=== PATIENT | male | born 1965 | race Caucasian/White ===

== ENCOUNTER → 2017-11-10 | Outpatient (CLI) | payer BC ==
--- NOTE | 2017-11-10 13:25 | XR ---
EXAMINATION TYPE: XR sinus DATE OF EXAM: 11/10/2017 CLINICAL HISTORY: Facial pain , headache. TECHNIQUE: Hutchison, Bone, and lateral image of the skull are obtained. COMPARISON: None. FINDINGS: Mild mucosal thickening is seen of the right maxillary sinuses. The remaining paranasal sin uses including the frontal and left maxillary sinuses appear well aerated without distinct abnormal o pacification. Orbital floors and william are intact. Facial bones appear intact. IMPRESSION: Mild right maxillary sinusitis.
--- NOTE | 2017-11-10 13:26 | XR ---
EXAMINATION TYPE: XR chest 2V DATE OF EXAM: 11/10/2017 COMPARISON: NONE HISTORY: Shortness of breath. Acute upper respiratory infection. TECHNIQUE: Frontal and lateral views of the chest are obtained. FINDINGS: There is no focal air space opacity, pleural effusion, or pneumothorax seen. The cardiac silhouette size is within normal limits. The osseous structures are intact. No peribronchial cuffin g as radiographic sequela bronchitis. IMPRESSION: No acute cardiopulmonary process.
== END | disposition home or self-care (01) ==
LOC: RADXRMAIN 12:33
PROVIDERS: ATTEND Internal Medicine
DX: J32.0 Chronic maxillary sinusitis (principal)
CPT/HCPCS: 70220; 71046

== ENCOUNTER → 2018-06-17 | Outpatient (CLI) | payer BC ==
--- NOTE | 2018-06-17 13:57 | EST ---
EXERCISE STRESS AGE: 52 SEX: M HT: 73" WT: 218 PROTOCOL: Shahriar Stress Test STAGE: 4 DURATION OF EXERCISE: 11:20 HEART RATE REST: 77 BLOOD PRESSURE REST: 139/84 MAXIMUM HEART RATE ACHIEVED: 143 MAXIMUM BLOOD PRESSURE: 213/79 85% MPHR: 142 METS: 12.1 INDICATIONS: Hypertension/dyspnea. CLINICAL INFORMATION: Patient was exercised for a total period of 11 minutes. A peak heart rate of 140, was achieved. Maximum blood pressure of 213/79 mmHg was noted. Patient did not complain of any chest pain during the test. The resting EKG shows normal sinus rhythm with normal KS interval and QRS duration and normal ST-T waves. No ST-segment depression suggestive of ischemia was noted. Test was terminated because patient got short of breath. FINAL IMPRESSION: This exercise test is not suggestive of ischemia. Patient's exercise tolerance is average. Patient did not complain of any chest pain during the test. MMODL / IJN: [id number] /
== END | disposition home or self-care (01) ==
LOC: RADNMMAIN 10:31
PROVIDERS: ATTEND Internal Medicine
DX: R06.00 Dyspnea, unspecified (principal); I10 Essential (primary) hypertension
CPT/HCPCS: 93017

== ENCOUNTER → 2019-06-23 | Outpatient (CLI) | payer BC ==
--- NOTE | 2019-06-23 09:08 | FL ---
EXAMINATION TYPE: FL barium swallow DATE OF EXAM: 06/23/2019 CLINICAL HISTORY: Dysphasia, food getting stuck mid sternum radiating to back single episode which cl eared after drinking water TECHNIQUE: A double contrast esophagram is performed utilizing air and barium. A total of 31 second s of fluoroscopic time was utilized during procedure. 41 spot images are saved to PACS. COMPARISON: None FINDINGS: The esophagus shows satisfactory motility and emptying into the stomach. Small sliding-type hiatal hernia seen towards the end of study. No stricture or intraluminal mass. Transient penetratio n without aspiration is present. No diverticulum. No significant gastroesophageal reflux was seen dur ing real time performance of this study. IMPRESSION: No suspicious intraluminal mass or stricture.
== END | disposition home or self-care (01) ==
LOC: RADUSWWP 07:42
PROVIDERS: ATTEND Internal Medicine
DX: R13.10 Dysphagia, unspecified (principal)
CPT/HCPCS: 74220

== ENCOUNTER → 2021-11-08 | Outpatient (CLI) | payer OTHER ==
--- NOTE | 2021-11-08 12:36 | XR ---
EXAMINATION TYPE: XR chest 2V DATE OF EXAM: 11/08/2021 COMPARISON: 11/10/2017 HISTORY: 56-year-old male J45.909 TECHNIQUE: Frontal and lateral views FINDINGS: The cardiomediastinal silhouette, aorta, and pulmonary vasculature are within normal limits. Mild int erstitial prominence. Otherwise, lungs and pleural spaces are clear. IMPRESSION: Mild interstitial prominence could reflect bronchitis or chronic asthma. No focal infiltrate seen.
== END | disposition home or self-care (01) ==
LOC: RADXRMAIN 10:55
PROVIDERS: ATTEND Internal Medicine
DX: J45.909 Unspecified asthma, uncomplicated (principal)
CPT/HCPCS: 71046

== ENCOUNTER → 2021-11-14 | Outpatient (CLI) | payer OTHER | LOC: LABWHC1 11:11 | PROVIDERS: ATTEND Internal Medicine | DX: Z20.822 Contact with and (suspected) exposure to COVID-19 (principal); J45.909 Unspecified asthma, uncomplicated | CPT/HCPCS: 87636 ==

== ENCOUNTER → 2022-02-22 | Outpatient (CLI) | payer OTHER | END | disposition home or self-care (01) | LOC: LABWHC1 08:13 | PROVIDERS: ATTEND Internal Medicine | DX: R73.9 Hyperglycemia, unspecified (principal) | CPT/HCPCS: 36415; 83036; 84439; 84443 ==

== ENCOUNTER 2022-04-28 18:45 | Emergency (ER) | payer OTHER ==
[2022-04-28 19:40] VITALS: BP 153/89; PULSE 61; RESP 22; TEMP 98.1
[2022-04-28] MEDS ORDERED: CEPHALEXIN 500 MG CAP PO STA (20:03)
[2022-04-28] MEDS ORDERED: DIPH,PERTUS(ACELL)TETVAC-LF 0.5 ML VIAL IM ONE (20:05)
--- NOTE | 2022-04-28 20:08 | ED ---
General Adult HPI - General Chief complaint: Wound/Laceration Stated complaint: right index finger injury Time Seen by Provider: 04/28/22 19:57 Source: patient, RN notes reviewed, old records reviewed Mode of arrival: ambulatory Limitations: no limitations - History of Present Illness Initial comments: 56-year-old male presents with laceration to the right index finger. This occurred on Thursday which was 2 days prior. He's had increased warmth and erythema to the index finger. No other injury. He is uncertain of his tetanus status. No fever. He is a nondiabetic. - Related Data Home Medications Medication Instructions Recorded Confirmed Ibuprofen [Motrin] 600 mg PO Q8HR PRN 08/04/14 08/04/14 Levothyroxine Sodium [Synthroid] 50 mcg PO DAILY 08/04/14 08/04/14 diphenhydrAMINE [Benadryl] 50 mg PO DAILY PRN 08/04/14 08/04/14 Previous Rx's Medication Instructions Recorded Ibuprofen [Motrin] 800 mg PO Q6HR PRN #20 tab 08/04/14 Cephalexin [Keflex] 500 mg PO QID 10 Days #40 cap 04/28/22 Allergies Allergy/AdvReac Type Severity Reaction Status Date / Time No Known Allergies Allergy Verified 04/28/22 19:40 Review of Systems ROS Statement: Those systems with pertinent positive or pertinent negative responses have been documented in the HPI. ROS Other: All systems not noted in ROS Statement are negative. Past Medical History Past Medical History: Hypertension History of Any Multi-Drug Resistant Organisms: None Reported Past Surgical History: Breast Surgery, Ear Surgery Additional Past Surgical History / Comment(s): sinus surgery Past Psychological History: No Psychological Hx Reported Smoking Status: Never smoker Past Alcohol Use History: None Reported Past Drug Use History: None Reported General Exam Limitations: no limitations General appearance: alert, in no apparent distress Head exam: Present: atraumatic, normocephalic Eye exam: Present: normal appearance, PERRL ENT exam: Present: normal exam Neck exam: Present: normal inspection Respiratory exam: Present: normal lung sounds bilaterally. Absent: respiratory distress, wheezes Cardiovascular Exam: Present: regular rate, normal rhythm GI/Abdominal exam: Present: soft. Absent: distended, tenderness Extremities exam: Present: other (V-shaped laceration less than a centimeter to the palmar surface distal phalanx right hand second digit. There is some soft tissue swelling and erythema predominantly over the distal phalanx.) Course Vital Signs 04/28/22 19:36 Temperature 98.1 F Pulse Rate 61 Respiratory 22 Rate Blood Pressure 153/89 O2 Sat by Pulse 98 Oximetry Medical Decision Making - Medical Decision Making 56-year-old male with small superficial laceration to the palmar surface distal phalanx right hand second digit. There is some mild associated cellulitis and decreased range of motion at that joint. His tetanus is updated in the emergency department. He started on Keflex. His laceration is too old to repair and is quite minimal. He should follow with his primary care physician to ensure that the soft tissue infection resolves. Disposition Clinical Impression: Laceration, Cellulitis Disposition: HOME SELF-CARE Condition: Fair Instructions (If sedation given, give patient instructions): Cellulitis (ED), Laceration (DC) Prescriptions: Cephalexin [Keflex] 500 mg PO QID 10 Days #40 cap Is patient prescribed a controlled substance at d/c from ED?: No Referrals: Brian Mcwilliams MD [Primary Care Provider] - 1-2 days Time of Disposition: 20:07
== END 2022-04-28 20:35 | disposition home or self-care (01) ==
LOC: EC 18:45
DX: S61.210A Laceration without foreign body of right index finger without damage to nail, initial encounter (principal); L03.011 Cellulitis of right finger; Z23 Encounter for immunization; I10 Essential (primary) hypertension
CPT/HCPCS: 90471; 90715; 99282

== ENCOUNTER 2022-07-26 14:18 | Emergency (ER) | payer OTHER ==
[2022-07-26 14:30] VITALS: BP 160/99; PULSE 85; RESP 16; TEMP 98.1
--- NOTE | 2022-07-26 15:12 | XR ---
EXAMINATION TYPE: XR chest 2V DATE OF EXAM: 07/26/2022 2:53 PM COMPARISON: Chest x-ray 11/08/2021, chest x-ray 11/10/2017 TECHNIQUE: XR chest 2V . CLINICAL INDICATION:Male, 56 years old with history of cough; FINDINGS: Lungs/Pleura: There is no evidence of pleural effusion, focal consolidation, or pneumothorax. Pulmonary vascularity: Unremarkable. Heart/mediastinum: Cardiomediastinal silhouette is unremarkable. Musculoskeletal: No acute osseous pathology. IMPRESSION: No acute cardiopulmonary disease/process.
[2022-07-26] MEDS ORDERED: predniSONE 50 MG TAB PO STA (16:21)
--- NOTE | 2022-07-26 16:23 | ED ---
General Adult HPI - General Chief complaint: Shortness of Breath Stated complaint: poss bronchitis Time Seen by Provider: 07/26/22 16:12 Source: patient, RN notes reviewed Mode of arrival: ambulatory Limitations: no limitations - History of Present Illness Initial comments: This is a pleasant 56-year-old male who presents back complaining of a dry cough which has been worsening over the past 7 days. Patient states she started getting sick last Thursday and took a COVID-19 test. Patient was positive. He realized he had been exposed to somebody with COVID-19. Patient states cough seemed to get worse. He called his doctor on Thursday was put on the antiviral medication for COVID-19. Patient is a nonsmoker. Denies any chest pain. Cough is nonproductive. Patient again tested himself last night and tested negative for COVID-19. However he is only 7 a days into the illness. No leg swelling. No hemoptysis. Other than the cough, no definitive shortness of breath. Patient has no immunosuppression. Not diabetic. No headache, no fever or chills, no changes in vision or hearing, no sore throat or difficulty with speech, no neck pain, no chest pain or shortness of breath, no abdominal pain, no nausea or vomiting, no changes in urination or bowel movements, no numbness or tingling, no extremity pain, no skin rashes or lesions. Past medical, surgical, social, and family history reviewed. - Related Data Home Medications Medication Instructions Recorded Confirmed Ibuprofen [Motrin] 600 mg PO Q8HR PRN 08/04/14 08/04/14 Levothyroxine Sodium [Synthroid] 50 mcg PO DAILY 08/04/14 08/04/14 diphenhydrAMINE [Benadryl] 50 mg PO DAILY PRN 08/04/14 08/04/14 Previous Rx's Medication Instructions Recorded Ibuprofen [Motrin] 800 mg PO Q6HR PRN #20 tab 08/04/14 Cephalexin [Keflex] 500 mg PO QID 10 Days #40 cap 04/28/22 Albuterol Inhaler [Ventolin Hfa 2 puff INHALATION Q4HR PRN #1 each 07/26/22 Inhaler] Benzonatate [Tessalon Perles] 200 mg PO TID PRN #30 capsule 07/26/22 predniSONE 50 mg PO DAILY #4 tab 07/26/22 Allergies Allergy/AdvReac Type Severity Reaction Status Date / Time No Known Allergies Allergy Verified 07/26/22 14:28 Review of Systems ROS Statement: Those systems with pertinent positive or pertinent negative responses have been documented in the HPI. ROS Other: All systems not noted in ROS Statement are negative. Past Medical History Past Medical History: Hypertension History of Any Multi-Drug Resistant Organisms: None Reported Past Surgical History: Breast Surgery, Ear Surgery Additional Past Surgical History / Comment(s): sinus surgery Past Psychological History: No Psychological Hx Reported Smoking Status: Never smoker Past Alcohol Use History: None Reported Past Drug Use History: None Reported General Exam - General Exam Comments Initial Comments: Vital signs reviewed, patient mildly hypertensive. Otherwise does not appear to be in any significant distress. SpO2 is 95% on room air. Limitations: no limitations General appearance: alert, in distress (Mild distress due to dry cough) Head exam: Present: atraumatic, normocephalic, normal inspection Eye exam: Present: normal appearance, PERRL, EOMI. Absent: scleral icterus, conjunctival injection, periorbital swelling ENT exam: Present: normal exam, normal oropharynx, mucous membranes moist, normal external ear exam. Absent: mucous membranes dry Neck exam: Present: normal inspection, full ROM, lymphadenopathy Respiratory exam: Present: normal lung sounds bilaterally. Absent: respiratory distress, wheezes, rales, rhonchi, stridor, accessory muscle use, decreased breath sounds, prolonged expiratory Cardiovascular Exam: Present: regular rate, normal rhythm, normal heart sounds. Absent: systolic murmur, diastolic murmur, rubs, gallop, clicks GI/Abdominal exam: Present: soft, normal bowel sounds. Absent: distended, tenderness, guarding, rebound, rigid Extremities exam: Present: normal inspection, full ROM, normal capillary refill. Absent: tenderness, pedal edema, joint swelling, calf tenderness Back exam: Present: normal inspection Neurological exam: Present: alert, oriented X3, CN II-XII intact Psychiatric exam: Present: normal affect, normal mood Skin exam: Present: warm, dry, intact, normal color. Absent: rash, cyanosis, diaphoretic, erythema, urticaria, vesicles, petechiae, pallor, mottled Course Vital Signs 07/26/22 14:28 Temperature 98.1 F Pulse Rate 85 Respiratory 16 Rate Blood Pressure 160/99 O2 Sat by Pulse 98 Oximetry Medical Decision Making - Medical Decision Making This symptomology consistent with COVID-19 infection. Patient has a dry cough. Vital signs are noted. 95% on room air. Normal respiratory rate. No increased work of breathing. No adventitious lung sounds. Patient counseled on disease course, treatment, we'll have the patient finish his antiviral medicine. I did agree to place the patient on a short course of corticosteroids, albuterol inhaler, Tessalon Perles. Patient concurs with this treatment plan. All questions answered. Discussed quarantine measures and basking measures. Patient was told to return to the ER for any signs or symptoms worsen. Told to return immediately if any other problems arise. All questions answered. Treatment plan discussed. Patient in agreement Every effort has been made to ensure accuracy of this dictation. However, due to the limitations of electronic medical records and dictation devices, errors in charting still occur. Supervising Dr. Vargas - Radiology Data Radiology results: report reviewed, image reviewed Disposition Clinical Impression: COVID-19 Disposition: HOME SELF-CARE Condition: Stable Instructions (If sedation given, give patient instructions): Coronavirus Disease 2019 (COVID-19) Additional Instructions: SELF QUARANTINE DISCHARGE: As you are at risk for symptoms due to coronavirus, please stay home and stay away from others as much as possible. Please maintain social distance of 6 feet if possible. You should not return to work until at least 3 days (72 hours) have passed since recovery of symptoms. This defined as resolution of fever without the use of fever reducing medicines and improvement in respiratory symptoms (e.g,, cough, shortness of breath) Isolation can end at least 5 days after symptom onset and after fever ends for 24 hours (without the use of fever-reducing medication) and symptoms are improving, if these people can continue to properly wear a well-fitted mask arou nd others for 5 more days after the 5-day isolation period. If you're still having symptoms at the end of 5 day period, isolate for an additional 5 days. More information about what to do if you are sick can be found on the CDC website at https://www.cdc.gov/coronavirus/2019-ncov/yk-yom-ivz-sick/claiu-zsui-bqxf.html Expect the symptoms to last for 7-14 days from onset. Use acetaminophen (Tylenol) as needed for discomfort. You can take a maximum of 1 gram every 6 hours for discomfort, with your total dose in 24 hours not exceeding 4 grams. Be sure to maintain hydration. Drink continuous water and/or items high in vitamin C, such as orange juice and/or lemonade. Unless you have high blood pressure, you may consider Sudafed (which is [id number]-[id number]) for nasal congestion. I would suggest that a short acting Sudafed rather than the 24 hour Sudafed. For a cough you may take Mucinex or Robitussin. Also consider the use of Vicks Vapor Rub or your chest when you sleep. Use a humidifier that is cleaned frequently, in the bedroom at night. For Nausea /Vomiting/Diarrhea associated with your Illness: o Small frequent sips of room temperature liquids. o Diet: Story Foods - If you are still experiencing discomfort and/or nausea please slowly advancing your diet using the BRAT Diet = bananas, rice, apples/apple sauce, toast. o With diarrhea avoid any dairy for 48 hours after symptoms resolved. o Continue with activity as tolerated. If your symptoms do get worse and you believe that the upper respiratory infection has developed into something else, such as pneumonia or severe dehydration, please return to the emergency department or follow-up with your primary care. But expect to be symptomatic for the days as indicated above Prescriptions: predniSONE 50 mg PO DAILY #4 tab Benzonatate [Tessalon Perles] 200 mg PO TID PRN #30 capsule PRN Reason: Cough Albuterol Inhaler [Ventolin Hfa Inhaler] 2 puff INHALATION Q4HR PRN #1 each PRN Reason: Wheezing Is patient prescribed a controlled substance at d/c from ED?: No Referrals: Brian Mcwilliams MD [Primary Care Provider] - 07/29/22 Time of Disposition: 16:22
== END 2022-07-26 16:14 | disposition home or self-care (01) ==
LOC: EC 14:18
DX: U07.1 COVID-19 (principal); I10 Essential (primary) hypertension; Z79.899 Other long term (current) drug therapy
CPT/HCPCS: 71046; 99284; J7512

== ENCOUNTER → 2022-08-29 | Outpatient (CLI) | payer BC ==
--- NOTE | 2022-08-29 16:20 | XR ---
EXAMINATION TYPE: XR chest 2V DATE OF EXAM: 08/29/2022 COMPARISON: 07/26/2022 HISTORY: Shortness of breath TECHNIQUE: Frontal and lateral views of the chest are obtained. FINDINGS: Scattered senescent parenchymal changes noted. No evidence for infiltrate. No evidence for atelectasis. Heart size is stable. Mediastinal structures are stable and grossly unremarkable. No evidence for hilar prominence. Degenerative changes dorsal spine. IMPRESSION: 1. No evidence for acute pulmonary disease.
== END | disposition home or self-care (01) ==
LOC: RADXRMAIN 16:01
PROVIDERS: ATTEND Internal Medicine
DX: R05.9 Cough, unspecified (principal)
CPT/HCPCS: 71046

== ENCOUNTER → 2022-10-11 | Outpatient (CLI) | payer BC ==
--- NOTE | 2022-10-11 08:09 | CT ---
EXAMINATION TYPE: CT chest w con CT DLP: 406.1 mGycm, Automated exposure control for dose reduction was used. DATE OF EXAM: 10/11/2022 8:00 AM COMPARISON: Chest radiograph 08/29/2022. CLINICAL INDICATION:Male, 57 years old with history of J45.909 acute asthmatic bronchitis, Coughing s david July TECHNIQUE: Multiple axial images were obtained through the chest. Sagittal and coronal reformats were created for review. Contrast used:100 mL of Isovue 300 with IV Contrast Oral contrast used: none. FINDINGS: LUNGS/ PLEURA: * No evidence for focal consolidation, pneumothorax or pleural effusion. * Trace apical scarring. * Minimal paraseptal emphysema changes. * Left upper lobe pulmonary nodule measuring 7 x 4 mm average 5.5 mm with a flat appearance on sagit carlos imaging. * Left upper lobe more medial 5 mm angular shaped nodule. * Right intrafissural fissure intrafissural lymph node measuring 5 mm. AIRWAY: Patent and unremarkable. HEART: Size within normal limits. MEDIASTINUM: No gross evidence of adenopathy. VASCULATURE: No aortic aneurysm. MUSCULOSKELETAL: No acute osseous abnormalities SOFT TISSUES/LYMPH NODES: Unremarkable. LOWER NECK: No significant findings. UPPER ABDOMEN: Diffuse low-attenuation to the liver parenchyma. Large splenule present measuring up t o 3.1 cm. IMPRESSION: 1. No evidence for acute process. 2. Scattered pulmonary nodules measuring less than 6 mm. Consider follow-up in 12 months if the lisa ent has risk factors.
== END | disposition home or self-care (01) ==
LOC: RADCTMAIN 07:22
PROVIDERS: ATTEND Internal Medicine
DX: J45.909 Unspecified asthma, uncomplicated (principal); R91.8 Other nonspecific abnormal finding of lung field
CPT/HCPCS: 71260; Q9967

== ENCOUNTER → 2023-05-16 | Outpatient (CLI) | payer BC ==
[2023-05-16 13:29] LABS: Basophils # (A) 0.04 X 10*3/uL (0.00-0.10); Eosinophils # (A) 0.11 X 10*3/uL (0.04-0.35); Eosinophils % (A) 2.7 %; HCT 46.6 % (39.6-50.0); HGB 15.9 d/dL (13.0-17.0); Lymphocytes # (A) 1.35 X 10*3/uL (0.90-5.00); Lymphocytes % (A) 32.8 %; MCH 29.5 pg (27.0-32.0); MCHC 34.1 d/dL (32.0-37.0); MCV 86.5 FL (80.0-97.0); Monocytes % (A) 12.2 %; NRBC Per 100 WBC 0 X 10*3/uL (0.00-0.01); Neutrophils % (A) 51.1 %; Platelet Count 186 X 10*3/uL (140-440); RBC 5.39 X 10*6/uL (4.40-5.60); RDW 12.4 % (11.5-14.5); WBC 4.11 X 10*3/uL (4.50-10.00)
[2023-05-16 13:42] LABS: ALT 25 U/L (10-49); AST 24 U/L (14-35); Albumin 4.9 d/dL (3.8-4.9); Albumin/Globulin Ratio 2.23 Ratio (1.60-3.17); Alkaline Phosphatase 58 U/L (41-126); Blood Urea Nitrogen 9.2 mg/dL (9.0-27.0); Calcium 9.9 mg/dL (8.7-10.3); Carbon Dioxide 27.9 mmol/L (21.6-31.8); Chloride 105 mmol/L (96-109); Globulin 2.2 d/dL (1.6-3.3); Glucose 113 mg/dL (70-110); Sodium 143 mmol/L (135-145); T4, Free (Free Thyroxine) 1.44 ng/dL (0.80-1.80); Total Bilirubin 0.8 mg/dL (0.3-1.2); Total Protein 7.1 d/dL (6.2-8.2)
== END | disposition home or self-care (01) ==
LOC: LABWHC1 08:04
PROVIDERS: ATTEND Internal Medicine
DX: Z12.5 Encounter for screening for malignant neoplasm of prostate (principal); Z11.59 Encounter for screening for other viral diseases; I10 Essential (primary) hypertension; E55.9 Vitamin D deficiency, unspecified; E03.9 Hypothyroidism, unspecified; R73.9 Hyperglycemia, unspecified
CPT/HCPCS: 86803; 84439; 80061; 80053; 83735; 84443; 85025; 82306; 83036; 36415; G0103

== ENCOUNTER → 2023-07-22 | Outpatient (CLI) | payer BC ==
--- NOTE | 2023-07-23 08:33 | CT ---
EXAMINATION TYPE: CT chest w con DATE OF EXAM: 07/22/2023 COMPARISON: 10/11/2022 HISTORY: h/o lung nodule f/u CT DLP: 422.3 mGycm Automated exposure control for dose reduction was used. TECHNIQUE: CT scan of the chest is performed with IV Contrast, patient injected with 100 mL of Isovue 300. MIP Images are created on CT scanner and reviewed. 3D reconstructed images are created on an independent workstation and reviewed. FINDINGS: LUNGS: The lungs are grossly clear, there is no concerning consolidative pneumonia identified. Ther e is no pleural effusion or pneumothorax seen. The tracheobronchial tree is patent. Biapical pleural scarring. Within the left upper lobe there is a stable 6 mm nodule. Axial image 30 series 4. There also is a 2 mm nodule in the right upper lobe axial image 30 series findings stable. Previously noted 5 mm left upper lobe nodule. There is an area of scarring MEDIASTINUM: There are no greater than 1 cm hilar or mediastinal lymph nodes. No pericardial effusi on is seen. OTHER: There is lobulated margin of the spleen most likely related to since spleen and stable. Mild reduced attenuation liver correlation for hepatic steatosis. Multilevel degenerative disc disease. IMPRESSION: 1. No acute process. Bilateral pulmonary nodules are stable recommend 12 month screening low-dose CT scan chest
== END | disposition home or self-care (01) ==
LOC: RADCTMAIN 17:43
PROVIDERS: ATTEND Internal Medicine
DX: R91.8 Other nonspecific abnormal finding of lung field (principal)
CPT/HCPCS: 71260; Q9967

== ENCOUNTER → 2023-07-25 | Outpatient (CLI) | payer BC ==
[2023-07-25 09:05] LABS: Basophils # (A) 0.1 k/uL (0-0.2); Basophils % (A) 1 %; Eosinophils # (A) 0.1 k/uL (0-0.7); Eosinophils % (A) 3 %; HCT 45.5 % (39.0-53.0); HGB 15.7 gm/dL (13.0-17.5); Lymphocytes # (A) 1.2 k/uL (1.0-4.8); Lymphocytes % (A) 27 %; MCHC 34.6 g/dL (31.0-37.0); MCV 86.7 fL (80.0-100.0); Mean Platelet Volume 8.3; Monocytes # (A) 0.4 k/uL (0-1.0); Monocytes % (A) 9 %; Neutrophils # (A) 2.5 k/uL (1.3-7.7); Neutrophils % (A) 57 %; Platelet Count 180 k/uL (150-450); RBC 5.25 m/uL (4.30-5.90); RDW 12.9 % (11.5-15.5); WBC 4.4 k/uL (3.8-10.6)
[2023-07-25 11:03] LABS: RBC Morphology Normal
[2023-07-25 14:17] LABS: T4, Free (Free Thyroxine) 1.28 ng/dL (0.80-1.80)
[2023-07-25 14:58] LABS: Albumin 4.7 d/dL (3.8-4.9); Protein, Total 7.1 d/dL (6.2-8.2)
== END | disposition home or self-care (01) ==
LOC: LABWHC1 08:00
PROVIDERS: ATTEND Internal Medicine
DX: D72.819 Decreased white blood cell count, unspecified (principal); E03.9 Hypothyroidism, unspecified
CPT/HCPCS: 36415; 82607; 82746; 84165; 84439; 84443; 85025; 86038

== ENCOUNTER → 2023-10-27 | Outpatient (CLI) | payer BC ==
[~2023-10-27] MED LIST: REGADENOSON 0.4 MG/5 ML SYRINGE IV ONE
--- NOTE | 2023-10-27 11:35 | NM ---
EXAMINATION TYPE: NM stress lexiscan cardiolite DATE OF EXAM: 10/27/2023 COMPARISON: NONE CLINICAL INDICATION: Male, 58 years old shortness of breath, with history of R06.09 DYSPNEA ON EXERTI ON; TECHNIQUE: After the intravenous administration of 10.2 mCi Tc 99m Sestamibi - Cardiolite resting SP ECT images acquired 70 minutes post injection. The patient received 0.4mg Lexiscan, 26.7 mCi Tc 99m Sestamibi - Stress images obtained [address] injection FINDINGS: Review of stress and rest SPECT images demonstrates fixed perfusion defect along the apical inferior wall. Also decreased perfusion along the mid to basal septal wall. Some of these changes are more pro nounced on rest suggesting attenuation artifact. No discrete reversibility is identified. Gated anal ysis shows normal wall motion with an estimated left ventricular ejection fraction of 69 %. TID is c alculated at 1.0, upper limits of normal. IMPRESSION: Fixed defects apical inferior wall as well as the mid to basal septal wall. These could r epresent areas of old infarcts. However, as some of these areas are more pronounced on rest, attenuat ion artifact is favored. No discrete reversibility identified.
--- NOTE | 2023-10-27 13:42 | CA ---
Transthoracic Echo Report Name: Antwan Tillman Age: 58 Gender: M : 1965 Exam Date: 10/27/2023 08:39 Exam Location: [facility] Ht (in): 73 Wt (lb): 225 Ordering Physician: Brian Mcwilliams DO Attending/Referring Phys: Brian Mcwilliams DO Department Of Sociology Chair Roseanna Pizarro RDCS Procedure CPT: Indications: R06.09 Dyspnea on exertion Cardiac Hx: Technical Quality: Fair Contrast 1: Total Dose (mL): Contrast 2: Total Dose (mL): MEASUREMENTS (Male / Female) Normal Values 2D ECHO LV Diastolic Diameter PLAX 3.9 cm 4.2 - 5.9 / 3.9 - 5.3 cm LV Systolic Diameter PLAX 1.5 cm IVS Diastolic Thickness 1.4 cm 0.6 - 1.0 / 0.6 - 0.9 cm LVPW Diastolic Thickness 1.2 cm 0.6 - 1.0 / 0.6 - 0.9 cm LV Relative Wall Thickness 0.7 RV Internal Dim ED PLAX 4.5 cm LA Volume 51.8 cm??? 18 - 58 / 22 - 52 cm??? LA Volume Index 22.4 cm???/m??? 16 - 28 cm???/m??? M-MODE Aortic Root Diameter MM 3.7 cm LA Systolic Diameter MM 4.2 cm LA Ao Ratio MM 1.1 AV Cusp Separation MM 2.5 cm DOPPLER AV Peak Velocity 148.7 cm/s AV Peak Gradient 8.8 mmHg AV Mean Velocity 110.5 cm/s AV Mean Gradient 5.3 mmHg AV Velocity Time Integral 35.7 cm LVOT Peak Velocity 128.4 cm/s LVOT Peak Gradient 6.6 mmHg LVOT Velocity Time Integral 26.3 cm MV Area PHT 3.7 cm??? Mitral E Point Velocity 75.3 cm/s Mitral A Point Velocity 94.5 cm/s Mitral E to A Ratio 0.8 MV Deceleration Time 203.8 ms MV E' Velocity 10.5 cm/s Mitral E to MV E' Ratio 7.1 TR Peak Velocity 250.5 cm/s TR Peak Gradient 25.1 mmHg Right Ventricular Systolic Press 29.8 mmHg FINDINGS Left Ventricle Mildly increased left ventricular wall thickness. Left ventricular cavity size normal. Normal left ventricular systolic function with no obvious regional wall motion abnormalities. Left ventricular ejection fraction is estimated at 55-60 %. Right Ventricle Moderate right ventricular dilatation. Right ventricular systolic pressure within normal limits. Right Atrium Mild right atrial dilatation. Left Atrium Normal left atrial size. Interatrial septal aneurysm. Mitral Valve Structurally normal mitral valve. Mild mitral annular calcification. Trace mitral regurgitation. Aortic Valve Trileaflet aortic valve. Trace aortic regurgitation. No aortic stenosis. Tricuspid Valve Structurally normal tricuspid valve. Mild tricuspid regurgitation. Pulmonic Valve Structurally normal pulmonic valve. Pericardium No pericardial effusion. Aorta Normal size aortic root and proximal ascending aorta. CONCLUSIONS Preserved LV systolic function Prominent right ventricle possibly mildly enlarged Previewed by: Dr. Donny Almazan MD (Electronically Signed) Final Date: 27 October 2023 13:41
--- NOTE | 2023-10-27 13:49 | CA ---
Lexiscan Nuclear Stress Test Report Name: Antwan Tillman Exam Date: 10/27/2023 09:35 Exam Location: [facility] Ht (in): 73 Wt (lb): 220 BSA: 2.24 Ordering Phys: Brian Mcwilliams DO Referring Phys: Brian Mcwilliams DO Technologist: Sam Cabrera Age: 58 Gender: M : 1965 Procedure CPT: Indications: R06.09 Dyspnea on exertion ICD-10 Codes: Patient History: ALCON, ASTHMA Medications: LEVOTHYROXIN, IBUPROFEN, PANTOPROZOLE, AMLODIPINE, ALBUTERL, PULMICORT, ACETOMINOPHEN, MULTIVITAMIN, ASPIRIN, D3, MAG, ZINC, DIPHENHYDROMINE Meds past 24 hrs: Pretest Chest Pain: STRESS TEST Lexiscan Protocol Exercise Duration (min:sec): 02:[address] Depressions (mm): Angina Score: Baker Score: Resting HR (bpm): 57 Peak HR (bpm): 85 Resting BP (mmHg): 126 / 80 Peak BP (mmHg): 129 / 71 MPHR: 161 Target HR: 137 % MPHR: 53 METS: 1.0 Total Dose: Peak Dose: Atropine: Double Product: 79043 BP Response: Stress Termination: END OF DOSAGE Stress Symptoms: No chest pain or symptoms Stress Summary: ECG ANALYSIS Resting ECG: Stress ECG: CONCLUSIONS No ECG evidence for ischemia during Lexiscan infusion No arrhythmias Normal heart rate and blood pressure response Nuclear portion will be reported separately. Dr. Donny Almazan MD (Electronically Signed) Final Date: 27 October 2023 13:48
== END | disposition home or self-care (01) ==
LOC: RADNMMAIN 07:31
PROVIDERS: ATTEND Internal Medicine
DX: R06.09 Other forms of dyspnea (principal)
CPT/HCPCS: 93017; 93306; 78452; A9500

== ENCOUNTER → 2024-08-08 | Outpatient (CLI) | payer OTHER ==
--- NOTE | 2024-08-08 08:45 | CT ---
EXAMINATION TYPE: CT chest w con DATE OF EXAM: 08/08/2024 7:35 AM COMPARISON: Chest radiograph from same day. Multiple CTs of the chest with most recent on 07/22/2023 08/11/2022 . CLINICAL INDICATION: Male, 58 years old with history of R91.8 lung nodule; PHH, LUNG NODULE TECHNIQUE: Multiple axial images were obtained through the chest. Sagittal and coronal reformats were created for review. MIP was performed on a separate workstation. Contrast used:100 mL of Isovue 370 with IV Contrast (None if empty) Oral contrast used: (None if empty) CT DLP: 425.7 mGycm, Automated exposure control for dose reduction was used. FINDINGS: LUNGS/ PLEURA: No focal consolidation or pleural effusion. No pneumothorax. Stable left upper lobe pu lmonary nodule measuring 6 mm series 3 image 34 right intrafissural lymph node measuring 4 mm series 3 image 33. AIRWAY: Patent and unremarkable. HEART: Size within normal limits. MEDIASTINUM: No gross evidence of adenopathy. VASCULATURE: No aortic aneurysm. MUSCULOSKELETAL: No acute osseous abnormalities SOFT TISSUES/LYMPH NODES: Unremarkable. LOWER NECK: No significant findings. UPPER ABDOMEN: Diffuse low-attenuation to the liver parenchyma. IMPRESSION: 1. Stable pulmonary nodules no new or enlarging pulmonary nodules. 2. No evidence for acute process. Follow up recommendations for incidental pulmonary nodules, if there are any, are per [employer] or [employer]. https://radiopaedia.org/articles/xxffqkhqbl-uybjmdi-[email or web address]-qaafst-[email or web address]?lang=us [facility], , 08/08/2024 8:43 AM
== END | disposition home or self-care (01) ==
LOC: RADCTMAIN 07:15
PROVIDERS: ATTEND Internal Medicine
DX: R91.8 Other nonspecific abnormal finding of lung field (principal)
CPT/HCPCS: 71260

== ENCOUNTER → 2024-09-22 | Outpatient (CLI) | payer OTHER ==
--- NOTE | 2024-09-22 07:36 | XR ---
EXAMINATION TYPE: XR chest 2V DATE OF EXAM: 09/22/2024 7:20 AM COMPARISON: None. CLINICAL INDICATION: Male, 59 years old with history of J45.901 UNSPECIFIED ASTHMA WITH (ACUTE) EXACE RBATI, TECHNIQUE: XR chest 2V view(s) obtained. FINDINGS: The heart size is normal. The pulmonary vasculature is normal. The lungs are clear. IMPRESSION: 1. No acute pulmonary process. [facility], , 09/22/2024 7:34 AM
== END | disposition home or self-care (01) ==
LOC: RADXRMAIN 07:08
PROVIDERS: ATTEND Internal Medicine
DX: J45.901 Unspecified asthma with (acute) exacerbation (principal)
CPT/HCPCS: 71046

== ENCOUNTER → 2025-03-25 | Outpatient (CLI) | payer OTHER ==
[2025-03-25 13:14] LABS: Basophils # (A) 0.05 X 10*3/uL (0.00-0.10); Basophils % (A) 1.1 %; Eosinophils # (A) 0.13 X 10*3/uL (0.04-0.35); Eosinophils % (A) 2.9 %; HCT 45.9 % (39.6-50.0); HGB 15.6 g/dL (13.0-17.0); Lymphocytes % (A) 31.3 %; MCH 28.8 pg (27.0-32.0); MCV 84.8 FL (80.0-97.0); Monocytes # (A) 0.56 X 10*3/uL (0.20-1.00); Monocytes % (A) 12.5 %; NRBC Per 100 WBC 0 X 10*3/uL (0.00-0.01); Neutrophils # (A) 2.33 X 10*3/uL (1.80-7.70); Platelet Count 203 X 10*3/uL (140-440); RBC 5.41 X 10*6/uL (4.40-5.60); RDW 12.5 % (11.5-14.5); WBC 4.48 X 10*3/uL (4.50-10.00)
[2025-03-25 13:47] LABS: ALT 27 U/L (10-49); AST 24 U/L (14-35); Albumin 4.5 g/dL (3.8-4.9); Albumin/Globulin Ratio 1.96 Ratio (1.60-3.17); Alkaline Phosphatase 58 U/L (41-126); BUN/Creat Ratio 8.55 Ratio (12.00-20.00); Blood Urea Nitrogen 9.4 mg/dL (9.0-27.0); Calcium 9.5 mg/dL (8.7-10.3); Carbon Dioxide 25.1 mmol/L (21.6-31.8); Chloride 104 mmol/L (96-109); Chol/HDL Ratio 3.77 Ratio; Globulin 2.3 g/dL (1.6-3.3); Glucose 108 mg/dL (70-110); LDL Cholesterol,Calculated 69.1 mg/dL (0.0-131.0); Magnesium 2.3 mg/dL (1.5-2.4); Potassium 3.7 mmol/L (3.5-5.5); Sodium 142 mmol/L (135-145); T4, Free (Free Thyroxine) 1.21 ng/dL (0.80-1.80); Total Bilirubin 1.2 mg/dL (0.3-1.2); Total Protein 6.8 g/dL (6.2-8.2)
== END | disposition home or self-care (01) ==
LOC: LABWHC1 07:16
PROVIDERS: ATTEND Internal Medicine
DX: Z00.00 Encounter for general adult medical examination without abnormal findings (principal); Z12.5 Encounter for screening for malignant neoplasm of prostate; E03.9 Hypothyroidism, unspecified; E55.9 Vitamin D deficiency, unspecified; R73.9 Hyperglycemia, unspecified
CPT/HCPCS: 84439; 80061; 80053; 83735; 84443; 85025; 82306; 83036; 36415; G0103